=== PATIENT | female | born 1955 | race American Indian/Alaskan Native ===

== ENCOUNTER 2017-10-05 06:44 | Emergency (ER) | payer OTHER ==
[2017-10-05] MEDS ORDERED: NACL 0.9% 1000 ML 2,000 ML ONE (06:47)
[2017-10-05 06:58] LABS: Hematocrit 39.4 % (30.3-42.9); Hemoglobin 13.6 gm/dl (10.1-14.3); Mean Corpuscular HGB Conc 35 % (30-34); Mean Corpuscular Hemoglobin 33 pg (28-32); Mean Corpuscular Volume 94 fl (79-97); Platelet Count 252 K/mm3 (140-440); Red Blood Count 4.17 M/mm3 (3.65-5.03); Red Cell Distribution Width 13.7 % (13.2-15.2)
[2017-10-05] MEDS ORDERED: MORPHINE ONE (07:06)
[2017-10-05] MEDS ORDERED: ZOFRAN ONE (07:07)
[2017-10-05 07:11] LABS: Alanine Aminotransferase 117 units/L (7-56); Albumin 4.3 g/dL (3.9-5); BUN/Creatinine Ratio 14; Blood Urea Nitrogen 15 mg/dL (7-17); Calcium 9.5 mg/dL (8.4-10.2); Hemolysis Index 55; Lipase 122 units/L (13-60)
[2017-10-05 07:13] LABS: Bilirubin,Direct < 0.2 mg/dL (0-0.2)
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
--- NOTE | 2017-10-05 07:23 | XRay Report ---
FINAL REPORT EXAM: XR PELVIS 1-2V HISTORY: Trauma TECHNIQUE: AP portable view(s) of the pelvis obtained. PRIORS: None. FINDINGS: There is marked widening of the pubic symphysis. Suggested mild asymmetric widening of the left sacroiliac joint. No displaced pelvic or proximal femur fracture. IMPRESSION: Marked pubic symphysis diastasis. CT of the abdomen and pelvis with contrast for evaluation of vascular injury and any additional skeletal injury is recommended. Please provide mechanism of injury and any focal outward signs of trauma on CT exam as this can increase the sensitivity for detection of acute findings.
[2017-10-05 07:25] LABS: INR 0.92 (0.87-1.13); Partial Thromboplastin Time 20.8 Sec. (24.2-36.6)
[2017-10-05] MEDS ORDERED: SUBLIMAZE ONE (07:25)
[2017-10-05] MEDS ORDERED: APRESOLINE IV ONE (07:25)
[2017-10-05] MEDS ORDERED: ZOFRAN IV ONE (07:38)
[2017-10-05] MEDS ORDERED: MORPHINE IV ONE (07:38)
[2017-10-05 07:44] VITALS: BP 153/90
[2017-10-05] MEDS ORDERED: NACL 0.9% 1000 ML 1,000 ML ONE (07:49)
[2017-10-05] MEDS ORDERED: SUBLIMAZE IV ONE (08:07)
[2017-10-05 09:44] LABS: Platelet Estimate Consistent w Auto; RBC Morphology Normal; Total Cells Counted 100
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
[2017-10-05] MEDS ORDERED: NACL 0.9% 1000 ML 1,000 ML IV ONE (19:03)
== END 2017-10-05 09:00 | disposition other institution (70) ==
LOC: ED 06:44
DX: S32.811A Multiple fractures of pelvis with unstable disruption of pelvic ring, initial encounter for closed fracture (principal); S01.01XA Laceration without foreign body of scalp, initial encounter; F17.200 Nicotine dependence, unspecified, uncomplicated; V09.9XXA Pedestrian injured in unspecified transport accident, initial encounter; Y93.89 Activity, other specified; Y92.89 Other specified places as the place of occurrence of the external cause; Y99.8 Other external cause status
CPT/HCPCS: 36415; 71045; 72170; 80048; 80074; 82550; 83690; 84484; 85007; 85025; 85610; 85730; 86850; 86900; 86901; 96361; 96374; 96375; 99291; G0480; J2270; J2405; J3010; J7030; 80320